=== PATIENT | female | born 1990 | race Caucasian/White ===

== ENCOUNTER → 2017-10-04 | Outpatient (REF) | payer BC ==
[2017-10-07 14:16] LABS: HPV LOW VOL RFLX Positive (Negative)
== END ==
LOC: M LAB REF 12:53
DX: R87.612 Low grade squamous intraepithelial lesion on cytologic smear of cervix (LGSIL) (principal)
CPT/HCPCS: G0123

== ENCOUNTER → 2018-02-10 | Outpatient (CLI) | payer BC | LOC: M WUC 13:10 | DX: M25.571 Pain in right ankle and joints of right foot (principal) | CPT/HCPCS: 73630 ==

== ENCOUNTER → 2018-11-13 | Outpatient (REF) | payer BC | LOC: M LAB REF 09:12 | PROVIDERS: ATTEND Specialist | DX: Z12.4 Encounter for screening for malignant neoplasm of cervix (principal) ==

== ENCOUNTER → 2019-08-06 | Outpatient (REF) | payer BC ==
[2019-08-06 14:15] LABS: HEMATOCRIT 42.7 % (36.0-47.0); HEMOGLOBIN 14.1 g/dl (12.0-15.5); MEAN CORPUSCULAR HEMOGLOBIN 29.8 pg (27.0-33.0); MEAN CORPUSCULAR VOLUME 90.3 fl (80.0-96.0); PLATELET COUNT, AUTOMATED 315 10^3/uL (150-450); RED BLOOD COUNT 4.73 10^6/uL (4.00-5.40); WHITE BLOOD COUNT 8.8 10^3/uL (4.0-10.0)
[2019-08-06 15:08] LABS: HEPATITIS B SURFACE ANTIGEN NEGATIVE (NEGATIVE); HEPATITIS C VIRUS ABY INDEX 0.1 INDEX (<0.8); HIV 1&2 SCREEN CENTAUR NEGATIVE (NEGATIVE); RUBELLA IgG QUALITATIVE IMMUNE (IMMUNE)
[2019-08-06 16:44] LABS: CHLAMYDIA DNA AMPLIFICATION NEGATIVE (NEGATIVE); GC DNA AMPLIFICATION NEGATIVE (NEGATIVE)
== END ==
LOC: M PLALAB 08:56
PROVIDERS: ATTEND Specialist
DX: Z34.80 Encounter for supervision of other normal pregnancy, unspecified trimester (principal)

== ENCOUNTER → 2019-09-20 | Outpatient (CLI) | payer BC, MEDICAID | LOC: M PLALAB 09:02 | PROVIDERS: ATTEND Advanced Practice Midwife | DX: Z34.82 Encounter for supervision of other normal pregnancy, second trimester (principal); Z36.89 Encounter for other specified antenatal screening ==

== ENCOUNTER → 2019-10-19 | Outpatient (CLI) | payer BC, MEDICAID | LOC: M WHC 13:46 | PROVIDERS: ATTEND Advanced Practice Midwife | DX: Z34.02 Encounter for supervision of normal first pregnancy, second trimester (principal); Z53.9 Procedure and treatment not carried out, unspecified reason ==

== ENCOUNTER → 2019-11-05 | Outpatient (CLI) | payer BC, MEDICAID ==
--- NOTE | 2019-11-06 09:58 | REP ---
REASON: anatomy. Multiple ultrasonographic images of the gravid uterus show a single living intrauterine gestation in variable position. Doppler interrogation of the heart shows a heart rate of 136 beats per minute. The placenta is anterior and not low lying. The subjective amniotic fluid volume is within normal limits. The cervix measures 4.5 cm in length and is closed. Evaluation of the maternal adnexal spaces show no abnormalities. BPD 4.9 cm = 20 weeks 5 days HC 18.1 cm = 20 weeks 2 days AC 16.1 cm = 21 weeks 2 days FL 3.4 cm = 20 weeks 5 days Estimated weight is 387 grams, which is at the 69th percentile for 52-oxjw-9-day gestational age. The anatomic structures seen and unremarkable are as follows: Thalami, cavum septum pellucidum, cerebellum, cisterna magna, cerebral ventricles, stomach, cord insertion, three-vessel umbilical cord, kidneys, urinary bladder, upper lip and spine. The structures suboptimally visualized are a follows: Four-chamber heart, right and left ventricular outflow tracts, and upper and lower extremities. IMPRESSION: Single living intrauterine gestation as described above with an estimated gestational age of 20 week 4 days via composite criteria and an estimated date of delivery 03/20/2020. No anomalies we detected, however, recommend a followup examination to better visualized those structures not well seen today as described above.
== END ==
LOC: M WHC 14:19
PROVIDERS: ATTEND Advanced Practice Midwife
DX: Z34.82 Encounter for supervision of other normal pregnancy, second trimester (principal); Z3A.20 20 weeks gestation of pregnancy

== ENCOUNTER → 2019-12-06 | Outpatient (REF) | payer BC, MEDICAID ==
[2020-01-03 12:13] LABS: HEMATOCRIT 32.9 % (36.0-47.0); HEMOGLOBIN 10.5 g/dl (12.0-15.5); MEAN CORPUSCULAR HEMOGLOBIN 28.3 pg (27.0-33.0); MEAN CORPUSCULAR HGB CONC 31.9 g/dl (32.0-36.5); MEAN CORPUSCULAR VOLUME 88.7 fl (80.0-96.0); PLATELET COUNT, AUTOMATED 315 10^3/uL (150-450); RED BLOOD COUNT 3.71 10^6/uL (4.00-5.40)
== END ==
LOC: M SFHCWAGY 15:28
PROVIDERS: ATTEND Obstetrics & Gynecology
DX: Z34.92 Encounter for supervision of normal pregnancy, unspecified, second trimester (principal); Z36.89 Encounter for other specified antenatal screening

== ENCOUNTER → 2019-12-06 | Outpatient (CLI) | payer BC, MEDICAID ==
--- NOTE | 2020-01-23 09:54 | REP ---
OBSTETRIC SONOGRAPHY: HISTORY: Supervision of second trimester. FINDINGS: Scanning through the gravid uterus demonstrates a single living intrauterine gestation in a breech lie. The placenta is anterior grade 0 without evidence of previa or abruption. Amniotic fluid is subjectively normal. heart rate is recorded at 140 beats per minute. Closed cervical length is measured transabdominally at 3.8 cm. The four chamber heart and outflow tract views were again less than optimally visualized due to position. BIOMETRY CHART: BPD 61 mm 25 weeks 1 day Head circumference 229 mm 25 weeks 0 days Abdominal circumference 199 mm 24 weeks 5 days Femur length 44 mm 24 weeks 5 days Humeral length 40 mm 24 weeks 5 days Estimated weight is 725 grams, 39th percentile. IMPRESSION: Single living intrauterine gestation at 25 weeks 0 days by today's composite criteria. heart and outflow tract views still less than optimally achieved. There is evidence of appropriate interval growth. This report was delayed due to a protracted network disruption at this facility. JADON
== END ==
LOC: M WHC 06:13
PROVIDERS: ATTEND Obstetrics & Gynecology
DX: Z34.92 Encounter for supervision of normal pregnancy, unspecified, second trimester (principal)

== ENCOUNTER → 2019-12-27 | Outpatient (CLI) | payer BC, MEDICAID ==
--- NOTE | 2020-01-15 17:47 | REP ---
OBSTETRIC SONOGRAPHY HISTORY: Follow-up anatomy. heart views and estimated weight. FINDINGS: Scanning through the gravid uterus demonstrates a viable single intrauterine gestation in a breech lie. The placenta is anterior grade 0 without evidence of placenta previa or abruption. Amniotic fluid is subjectively normal. BETH is measured at 17.3 cm, which is in the normal range. Closed cervical length is measured transabdominally at 4.4 cm. heart rate is recorded at 150 beats per minute. Right and left ventricular outflow tract views could not be achieved today again due to position. BIOMETRY CHART: BPD 70 mm 28 weeks 4 days Head Circumference 261 mm 28 weeks 4 days Abdominal Circumference 233 mm 27 weeks 5 days Femur Length 51 mm 27 weeks 5 days Humeral Length 46 mm 27 weeks 5 days Estimated Weight 1125 g 39th percentile IMPRESSION: Viable single intrauterine gestation at 28 weeks 1 day by todays composite criteria. Breech lie. Position precludes adequate visualization of heart structures. MTDD
== END ==
LOC: M WHC 14:35
PROVIDERS: ATTEND Obstetrics & Gynecology
DX: Z34.82 Encounter for supervision of other normal pregnancy, second trimester (principal)

== ENCOUNTER → 2020-01-23 | Outpatient (CLI) | payer BC, MEDICAID ==
--- NOTE | 2020-02-14 12:57 | REP ---
OBSTETRIC SONOGRAPHY: (REPEAT DICTATION) HISTORY: Follow-up anatomy. Incomplete cardiac views. FINDINGS: Scanning demonstrates a viable single intrauterine gestation in a cephalic lie. heart rate is recorded at 127 beats per minute. Amniotic fluid is subjectively normal. Amniotic fluid index (BETH) is normal at 13.0 cm. An anterior grade 2 placenta is seen without evidence of previa. Three vessel umbilical cord is noted. Closed cervical length is measures at 3.9 cm viewed transabdominally. heart views were obtained today including left ventricular outflow tract, four chamber heart, and right ventricular outflow tract views. BIOMETRY CHART: BPD 8.1 cm 32 weeks 5 days Head circumference 29.6 cm 32 weeks 5 days Abdominal circumference 28.3 cm 32 weeks 2 days Femur length 6.4 cm 33 weeks 0 days Humeral length 5.7 cm 32 weeks 6 days AC/HC ratio 1.05 Normal Cephalic index 0.77 Normal Estimated weight 2004 grams, 4 pounds 6 ounces, 71st percentile for 31 weeks 4 days. IMPRESSION: Single living intrauterine gestation at 32 weeks 5 days by todays composite sonographic criteria. Estimated date of delivery (JANIA) by [facility] 03/14/2020. cardiac structures are observed today and felt to be normal sonographically. MTDD
== END ==
LOC: M WHC 14:57
PROVIDERS: ATTEND Obstetrics & Gynecology
DX: Z34.83 Encounter for supervision of other normal pregnancy, third trimester (principal); Z3A.32 32 weeks gestation of pregnancy

== ENCOUNTER → 2020-02-11 | Outpatient (CLI) | payer BC, MEDICAID ==
--- NOTE | 2020-02-14 10:22 | REP ---
LIMITED OBSTETRIC SONOGRAPHY HISTORY: Supervision of . Follow-up. COMPARISON STUDY: 01/23/2020. FINDINGS: Scanning through the gravid uterus demonstrates a viable single intrauterine gestation in a cephalic lie. The placenta is anterior grade 2 without evidence of previa. Amniotic fluid is subjectively normal. Amniotic fluid index (BETH) is normal at 13.6 cm. heart rate is recorded at 134 beats per minute. Three-vessel cord is seen. Closed cervical length is measured at 3.8 cm viewed transabdominally. BIOMETRY CHART: BPD 8.5 cm 34 weeks 3 days Head circumference 31.1 cm 34 weeks 6 days Abdominal circumference 30.2 cm 34 weeks 1 day Femur length 6.9 cm 35 weeks 2 days Humeral length 6.1 cm 35 weeks 4 days AC/HC ratio 1.03 Normal Cephalic index 0.77 Normal Estimated weight 2461 grams, 5 pounds 6 ounces, 52nd percentile for 34 weeks 2 days. IMPRESSION: Viable single intrauterine gestation at 34 weeks 6 days, estimated date of delivery (JANIA) by [facility] sonography 03/18/2020. Expected gestational age estimate 34 weeks 2 days. Estimated date of delivery (JANIA) 02/20/2020. Appropriate interval growth. MTDD
== END ==
LOC: M WHC 06:43
PROVIDERS: ATTEND Obstetrics & Gynecology
DX: Z34.03 Encounter for supervision of normal first pregnancy, third trimester (principal); Z3A.34 34 weeks gestation of pregnancy

== ENCOUNTER → 2020-02-19 | Outpatient (REF) | payer BC, MEDICAID | LOC: M SFHCWAGY 13:39 | PROVIDERS: ATTEND Obstetrics & Gynecology | DX: Z3A.35 35 weeks gestation of pregnancy (principal) ==

== ENCOUNTER 2020-03-21 11:10 | Inpatient (IN) | payer BC, MEDICAID ==
[~2020-03-21] VITALS: Ht 162.6 cm; Wt 115.3 kg
[2020-03-21] VITALS (14 sets, daily range): BP systolic 125–147; BP diastolic 70–98
[2020-03-21] MEDS ORDERED: LACTATED RINGER'S 1000 ML IV STA (11:21)
[2020-03-21 12:36] LABS: HEMATOCRIT 31.3 % (36.0-47.0); HEMOGLOBIN 9.3 g/dl (12.0-15.5); MEAN CORPUSCULAR HEMOGLOBIN 21.6 pg (27.0-33.0); MEAN CORPUSCULAR HGB CONC 29.7 g/dl (32.0-36.5); MEAN CORPUSCULAR VOLUME 72.8 fl (80.0-96.0); PLATELET COUNT, AUTOMATED 354 10^3/uL (150-450); WHITE BLOOD COUNT 10.8 10^3/uL (4.0-10.0)
[2020-03-21 12:48] LABS: TOTAL PROTEIN,RANDOM URINE 8.1 MG/DL (0.0-12.0)
[2020-03-21 12:49] LABS: ALT/SGPT 15 U/L (12-78); BILIRUBIN,TOTAL 0.2 MG/DL (0.2-1.0); CREATININE FOR GFR 0.66 MG/DL (0.55-1.30); GLOMERULAR FILTRATION RATE > 60.0 (>60); LDH LACTATE DEHYDROGENASE 214 U/L (84-246); URIC ACID 5.5 MG/DL (2.6-6.0)
--- NOTE | 2020-03-21 13:54 | HPEPDOC ---
Obstetrical History & Physical General Date of Admission Mar 21, 2020 at 11:10 History of Present Illness Chief Complaint: Induction of labor (GHTN and edema) Information Provided By: Patient Age: 29 : 1 Term: 0 Pre-term: 0 Abortions: 0 Livin Care Care: Good Care Dating Final EDC by: LMP EGA at Admission: 39 (+6) Antepartum Course Admission Weight (lbs.): 255 Past Medical History Past Obstetrical History : Past Obstetrical History: [employer] History: Abnormal Pap, Human papillomavirus(HPV) Past Medical History Medical History asthma Surgical History: Denies/None Family History Significant Family History: Diabetes Social History Marital Status: Single Family situation: Spouse/partner home Psychosocial History: No pertinent psych hx * Smoker: non-smoker Alcohol: Denies Drugs: denies Abuse Violence Screening Have you been hit/kicked/slapp: No Have you been sexually assault: No Imunizations Tdap status: current Physical Examination Physical Examination GENERAL: Alert and oriented times three. BREAST: . ABDOMEN: Gravid and non-tender to touch. FETUS: Is vertex (VTX) by sterile vaginal examination (SVE), fetus is vertex (VTX) by Tres. EFW 8-8.5# HEART RATE: Regular rate and rhythm. LUNGS: Clear to auscultation (CTA). EXTREMITIES: No clonus. Deep tendon reflexes (DTRs) + 2-3, + 1 pitting lower extremity edema. Vital Signs/I&O Vital Signs Date Time Temp Pulse Resp B/P (MAP) Pulse Ox O2 Delivery O2 Flow Rate FiO2 03/21/20 13:04 91 130/90 (103) 03/21/20 11:38 98.3 16 Laboratory Data 24H LABS Laboratory Tests 2 03/21/20 11:20: Serology Scanned Report Hepatitis B Testing 03/21/20 12:06: Nucleated Red Blood Cells % (auto) 0.0, Urine Random Creatinine 29.0, Urine Random Total Protein 8.1, Glomerular Filtration Rate > 60.0, Uric Acid 5.5, Total Bilirubin 0.2, Aspartate Amino Transf (AST/SGOT) 15, Alanine Aminotransferase (ALT/SGPT) 15, Lactate Dehydrogenase 214, Syphilis Serology NONREACTIVE CBC/BMP Laboratory Tests 03/21/20 12:06 Pertinent Laboratoy Data Blood Type: O+ RBC Antibody Screen: Negative HIV: Negative Hepatitis B: Negative Hepatitis C: Negative Rapid Plasma Reagin: Nonreactive Rubella: Immune Chlamydia/Gonorrhea: Negative Group B Streptococcus: Negative Quad Screen Test: Unknown (low risk panorama) Glucose Tolerance Test: 106 Diag/Inter Therapy NIPT low risk Anatomy Ultrasound Ultrasound Date: Nov 05, 2019 Placenta Location: Anterior Normal Anatomy: Yes Placenta Previa: No Estimated Weight (grams): 387 (69%) Other Ultrasounds 08/06/2019+fh cw dates 12/06/2019 f/u. EFW 725gm 39%, continued inability to visualize cardiac structures 12/27/2019 EFW 1125gm 39%, continued inability to visualize cardiac structures 01/23/2020 EFW 2004gm 71%, adequate visualization of cardiac structures 02/19/2020 vertex Steroid Therapy Steroid Therapy: No Vaginal Examination Dilation: 1cm Effacement: other (25%) Station: -3 Cervical Consistency: Firm Cervical Position: Posterior Presentation: Cephalic presentation Assessment Heart Rate (FHR): 125 Variability: Moderate Accelerations: Positive Decelerations: None Tocometer Contractions: No Assessment/Plan Assessment Hina is a 29-year-old (G)1 para (P)0-0-0-0 at 39+6 weeks by 7-week ultrasound. Presents to Labor and Delivery (L&D) induction of labor. Office appointment today noted BP 148/92 with marked lower extremity edema. Plan Admit and orient. Event Organizer and consent per consult Dr Jaramillo Diet: regular. Group B Streptococcus (GBS) negative. Labs and intravenous (IV) per unit protocol. Counseled on misoprostol, Pitocin and induction of labor (IOL). Lactated Ringers (LR): Bolus 500 mL, then saline lock. Plans to labor ad pierre Anticipate normal spontaneous delivery (). C-S as appropriate. Lenore Crespo CNM Mar 21, 2020 13:54
[2020-03-21] MEDS ORDERED: TUMS750C5 PO (13:58)
[2020-03-21] MEDS ORDERED: PRENTAB9 PO (13:58)
[2020-03-21] MEDS: miSOPROStol 50 MCG 1/2 TAB (S0191) PO SCH ×3 (14:17→22:15)
[2020-03-22] VITALS (56 sets, daily range): BP systolic 106–197; BP diastolic 50–102
[2020-03-22] MEDS ORDERED: PROMETHAZINE INJ 25 MG/ML VIAL (J2550) IV ONE ×2 (02:30→08:00)
[2020-03-22] MEDS ORDERED: BUTORPHANOL 2 MG/ML INJ (J0595) IV ONE ×2 (02:30→08:00)
[2020-03-22] MEDS: miSOPROStol 50 MCG 1/2 TAB (S0191) PO SCH (02:32)
--- NOTE | 2020-03-22 07:36 | IPNPDOC ---
Text Note Date of Service The patient was seen on 03/22/20. NOTE Progress Has received misoprosol x 4. UC 3-4 minutes apart x 45-60 seconds FH 120, difficult to trace ddue to habitus. Primarily Cat I SVE 2/80/-3, posterior. VSS. Cooks catheter placed, inflated with 60/40cc NS. Stadol and phenergan ordered Will update Dr Torres. VSVasquez, I+O VSVasquez, I+O Laboratory Tests 03/21/20 12:06 Vital Signs Date Time Temp Pulse Resp B/P (MAP) Pulse Ox O2 Delivery O2 Flow Rate FiO2 03/22/20 02:32 18 03/22/20 00:39 98.1 83 116/57 (76) I&O- Last 24 Hours up to 6 AM 03/22/20 06:00 Intake Total 1400 ml Balance 1400 ml Lenore Crespo CNM Mar 22, 2020 07:36
[2020-03-22] MEDS ORDERED: FENTANYL 2MCG/ML ROPIVACAINE 0.2% IN 0.9% NACL 100ML IVBAG As Ordered ONE (11:31)
[2020-03-22 12:39] LABS: HEMATOCRIT 30.4 % (36.0-47.0); MEAN CORPUSCULAR HEMOGLOBIN 21.3 pg (27.0-33.0); MEAN CORPUSCULAR HGB CONC 29.6 g/dl (32.0-36.5); PLATELET COUNT, AUTOMATED 328 10^3/uL (150-450); RED BLOOD COUNT 4.22 10^6/uL (4.00-5.40); WHITE BLOOD COUNT 16.8 10^3/uL (4.0-10.0)
--- NOTE | 2020-03-22 14:18 | IPNPDOC ---
Obstetrical Progress Note Date of Service Mar 22, 2020 Subjective comfortable with epidural Objective Vital Signs Date Time Temp Pulse Resp B/P (MAP) Pulse Ox O2 Delivery O2 Flow Rate FiO2 03/22/20 13:18 97 139/102 (114) 03/22/20 08:40 14 03/22/20 00:39 98.1 Assessment Heart Rate (FHR): 120 Variability: Moderate Decelerations: None Heart Rate Tracing: Category I Tocometer Contractions: Yes Frequency: regular, every 1-5 min. Duration: greater than 60 seconds Strength: palpated as strong Sterile Vaginal Examination Dilation: 5 cm Effacement (%): 90% Station: -2 Cervical Consistency: Soft Cervical Position: Posterior Postion/Presentation: Cephalic presentation Assessment and Plan Age: 31 : 1 Term: 0 Weeks & Days 31 yo G1 at 39 6/7 weeks, induction for hypertension AROM for moderate meconium epidural in place and functioning well expect progress within the next couple of hours after AROM Status: Reassuring MILY GLASGOW MD Mar 22, 2020 14:18
[2020-03-22] MEDS ORDERED: FENTANYL/ROPIVACAINE/NACL BAG 100 ML EPIDURAL SCH (15:15)
[2020-03-22] MEDS ORDERED: LACTATED RINGER'S 1000 ML IV PRN (15:15)
[2020-03-22] MEDS ORDERED: diphenhydrAMINE 50MG/ML VIAL (J1200) IV PRN ×2 (15:15→16:25)
[2020-03-22] MEDS ORDERED: REFRIGERATOR IV KEYS XX PRN (15:15)
[2020-03-22] MEDS ORDERED: OXYTOCIN DRIP 30 UNITS in IV 1 EA IV SCH ×2 (15:15→17:15)
[2020-03-22] MEDS ORDERED: EPIDURAL COMMENT XX SCH (15:15)
[2020-03-22] MEDS ORDERED: EPIDURAL/PCA KEYS XX PRN (15:15)
[2020-03-22] MEDS ORDERED: ONDANSETRON 4MG/2ML VIAL IV PRN ×4 (15:15→17:15)
[2020-03-22] MEDS ORDERED: NALOXONE INJ 0.4MG/1ML VIAL (J2310 PER 1MG) IV PRN ×3 (15:15→16:25)
[2020-03-22] MEDS ORDERED: ePHEDrine SULFATE 25 MG/5 ML(5MG/ML) SYRINGE IV PRN (15:15)
[2020-03-22] MEDS ORDERED: KETOROLAC 60MG 2ML VIAL As Ordered ONE (15:54)
[2020-03-22] MEDS ORDERED: ONDANSETRON 4MG/2ML VIAL As Ordered ONE (15:54)
[2020-03-22] MEDS ORDERED: dexameTHASONE 4 MG/ML 1ML VIAL (J1100 PER 1MG) As Ordered ONE (15:54)
[2020-03-22] MEDS ORDERED: OXYTOCIN INJ 10 UNITS/ML VIAL (J2590) As Ordered ONE (15:54)
[2020-03-22] MEDS ORDERED: BICITRA 30ML SOLN UDC PO ONE (16:00)
[2020-03-22] MEDS ORDERED: ceFAZolin SOD 2 GM in IV 1 EA IV ONE (16:00)
[2020-03-22] MEDS ORDERED: AZITHROMYCIN INJ 500 MG, VIAL MATE ADAPTER 1 EACH in D5W 250 ML IV ONE (16:00)
[2020-03-22] MEDS ORDERED: SODIUM BICARBONATE 8.4% INJ 50MEQ 50 ML VIAL As Ordered ONE (16:06)
[2020-03-22] MEDS ORDERED: LIDOCAINE 2% W/EPINEPHRINE 20ML VIAL **PRES FREE As Ordered ONE (16:06)
[2020-03-22] MEDS ORDERED: MORPHINE PRES-FREE INJ 10 MG/10 ML VIAL (J2274) As Ordered ONE (16:22)
[2020-03-22] MEDS ORDERED: NALBUPHINE HCL 10 MG/ML AMP (J2300) IV PRN (16:25)
[2020-03-22] MEDS ORDERED: METOCLOPRAMIDE INJ 10MG/2ML VIAL (J2765 PER 1) IV PRN (16:25)
[2020-03-22 16:34] LABS: CORD GAS ABE A -5.4; CORD GAS ABE V -4.7; CORD GAS HCO3 A 23.2 MEQ/L; CORD GAS HCO3 V 22.5 MEQ/L; CORD GAS O2 SAT A < 15.0 %; CORD GAS O2 SAT V 28.1 %; CORD GAS PCO2 A 57.1 mmHg; CORD GAS PCO2 V 49.5 mmHg; CORD GAS PH A 7.226 UNITS; CORD GAS PH V 7.276 UNITS; CORD GAS PO2 A < 10.0 mmHg; CORD GAS PO2 V 16.2 mmHg; CORD GAS SBC V 18.9 MEQ/L; CORD GAS TCO2 A 24.9 MEQ/L
--- NOTE | 2020-03-22 16:59 | ROOPDOC ---
[facility] Report Of Operation Report of Operation DATE OF PROCEDURE: 03/22/20 Report of operation Preoperative diagnosis: 39 6/7 weeks, gestational hypertension, arrest of dilation Postoperative diagnosis: same Procedure: Primary low transverse section. Surgeon: Mily Glasgow M.D. EBL: 500 ml. Urine output: 100 mL's. Findings: 8 lbs. 7 oz. female infant, Apgars 8 and 9 g normal uterus, fallopian tubes, ovaries. Moderate meconium present. Nuchal cord x 1. Operative summary: Patient taken to the operating room where epidural anesthesia was adequate. She wass prepped draped sterile fashion in the supine position. A Goldstein catheter was in place. A Pfannenstiel skin incision was made with scalpel. Fascia was incised and extended bilaterally. The peritoneal cavity was entered. A Mobius retractor was placed. A bladder flap was created. A curvilinear incision was made in lower uterine segment until meconium stained fluid was noted. The incision was extended manually. The infant was delivered from the vertex position without difficulty. Cord was double clamped and cut. The infant was handed waiting nurses. The placenta was expressed. Uterus was closed with O-Vicryl in a running locked fashion. A second imbricating layer of Vicryl was placed. Peritoneum was closed with 2-0 Vicryl a running fashion. Fascia was closed with 0 Vicryl in running fashion. Skin was closed 4-0 Monocryl subcuticular sutures. Sponge, instrument and needle counts were correct. MILY GLASGOW MD Mar 22, 2020 16:59
[2020-03-22] MEDS ORDERED: MEASLES,MUMPS,RUBELLA VACCINE INJ (MMR-II) (90707) SC SCH (17:00)
[2020-03-22] MEDS ORDERED: RHOGAM 300 MCG (1500 IU) INJ (J2790) IM SCH (17:00)
[2020-03-22] MEDS ORDERED: DOCUSATE SODIUM 100 MG CAP PO PRN (17:00)
[2020-03-22] MEDS ORDERED: PERCOCET 5MG/325MG TAB PO PRN (17:00)
[2020-03-22] MEDS ORDERED: fentaNYL 100 MCG/2 ML INJECTION (J3010) IV PRN (17:15)
[2020-03-22] MEDS ORDERED: MORPHINE 2 MG/ML 1ML VIAL (J2270) IV PRN (17:15)
[2020-03-22] MEDS ORDERED: LR 1,000 ML IV SCH ×2 (17:15)
[2020-03-22] MEDS ORDERED: oxyCODONE 5MG TAB PO PRN (17:15)
[2020-03-22] MEDS: LABETALOL 200 MG TAB PO SCH (21:47)
[2020-03-22] MEDS: KETOROLAC 30 MG/ML 1ML VIAL IV SCH (22:46)
[2020-03-23 02:00] VITALS: BP 134/79
[2020-03-23] MEDS: KETOROLAC 30 MG/ML 1ML VIAL IV SCH ×2 (05:10→11:29)
[2020-03-23 06:00] VITALS: BP 117/73
[2020-03-23 07:59] LABS: HEMATOCRIT 27.4 % (36.0-47.0); HEMOGLOBIN 8.2 g/dl (12.0-15.5); MEAN CORPUSCULAR HGB CONC 29.9 g/dl (32.0-36.5); MEAN CORPUSCULAR VOLUME 73.5 fl (80.0-96.0); PLATELET COUNT, AUTOMATED 318 10^3/uL (150-450); RED BLOOD COUNT 3.73 10^6/uL (4.00-5.40); WHITE BLOOD COUNT 20.2 10^3/uL (4.0-10.0)
[2020-03-23] MEDS: PRENATAL VITAMINS CHEWABLE TABLET PO SCH (08:13)
[2020-03-23] MEDS: LABETALOL 200 MG TAB PO SCH ×2 (08:14→20:32)
[2020-03-23 08:16] VITALS: BP 138/87
[2020-03-23] MEDS: PERCOCET 5MG/325MG TAB PO PRN ×2 (08:57→17:37)
[2020-03-23] MEDS: FUROSEMIDE 20 MG TAB PO SCH (09:46)
[2020-03-23] MEDS ORDERED: OXYC1TAB23 PO (10:13)
[2020-03-23 13:33] VITALS: BP 128/79
[2020-03-23 17:19] VITALS: BP 132/84
[2020-03-23] MEDS: IBUPROFEN 800 MG TAB PO SCH (19:14)
[2020-03-23 22:16] VITALS: BP 122/74
[2020-03-24 02:15] VITALS: BP 138/86
[2020-03-24] MEDS: IBUPROFEN 800 MG TAB PO SCH ×2 (02:22→11:42)
[2020-03-24] MEDS: PERCOCET 5MG/325MG TAB PO PRN (02:23)
[2020-03-24] MEDS ORDERED: LABE20TAB PO (05:09)
[2020-03-24] MEDS ORDERED: IBUP80TA PO (05:09)
--- NOTE | 2020-03-24 05:16 | DS.PDOC ---
Discharge Summary General Date of Admission Mar 21, 2020 at 11:10 Date of Discharge March 24, 2020 Attending Physician: MILY GLASGOW MD Discharge Summary PROCEDURES PERFORMED DURING STAY: [None]. ADMITTING DIAGNOSES: 1. 39 6/7 weeks, gestational hypertension. DISCHARGE DIAGNOSES: 1. same. COMPLICATIONS/CHIEF COMPLAINT: Induction. HISTORY OF PRESENT ILLNESS: 29 yo G1 at 39 6/7 weeks gestation presents for labor induction due to hypertension as well as worsening edema.. HOSPITAL COURSE: Pt was admitted on 03/21/2020. She had Misoprostol induction initially. She had an intracervical catheter placed. She had AROM performed when the catheter fell out. She was eventually diagnosed with arrest of dilation. ON 03/22/2020 she had a section for an 8 lb 7 oz infant. There were no complications. She received Labetalol post for elevated blood pressure. She received a dose of Lasix for generalized edema. She was stable for discharge day#2 after surgery. DISCHARGE MEDICATIONS: Please see below. ALLERGIES: Please see below. PHYSICAL EXAMINATION ON DISCHARGE: VITAL SIGNS: Please see below. GENERAL: WNL HEENT: NCAT CARDIOVASCULAR EXAMINATION: RRR RESPIRATORY EXAMINATION: CTA ABDOMINAL EXAMINATION: NT, dressing C/D/I EXTREMITIES: 2+ edema LE's LABORATORY DATA: Please see below. PROGNOSIS: good ACTIVITY: As tolerated. DIET: reg DISCHARGE PLAN: home DISCHARGE INSTRUCTIONS: 1. d/c home 2. instructions reviewed. DISCHARGE CONDITION: Stable. TIME SPENT ON DISCHARGE: Greater than 10 minutes. Vital Signs/I&Os Vital Signs Date Time Temp Pulse Resp B/P (MAP) Pulse Ox O2 Delivery O2 Flow Rate FiO2 03/24/20 02:23 18 03/24/20 02:15 97.4 102 138/86 (103) 03/23/20 17:19 98 Room Air I&O- Last 24 Hours up to 6 AM 03/24/20 06:00 Intake Total 1200 ml Output Total 775 ml Balance 425 ml Laboratory Data Labs 24H Laboratory Tests 2 03/23/20 07:28: Nucleated Red Blood Cells % (auto) 0.0 CBC/BMP Laboratory Tests 03/23/20 07:28 Discharge Medications Scheduled Ibuprofen (Ibuprofen) 800 Mg Tablet, 800 MG PO Q8H Labetalol HCl (Labetalol HCl) 200 Mg Tablet, 200 MG PO BID No.137/Iron/Folic Acd ( Vitamin Tablet) 1 Each Tablet, 1 TAB PO DAILY, (Reported) Scheduled PRN Calcium Carbonate (Tums) 300 Mg Tab.chew, 750 MG PO Q4HP PRN for INDIGESTION, (Reported) Oxycodone HCl/Acetaminophen (Oxycodone-Acetaminophen 5-325) 1 Each Tablet, 1 TAB PO TIDP PRN for pain Allergies Coded Allergies: No Known Drug Allergies (Verified Allergy, Unknown, 03/21/20) MILY GLASGOW MD Mar 24, 2020 05:16
[2020-03-24 06:11] VITALS: BP 131/84
[2020-03-24] MEDS: FUROSEMIDE 20 MG TAB PO SCH (09:35)
[2020-03-24] MEDS: PRENATAL VITAMINS CHEWABLE TABLET PO SCH (09:35)
[2020-03-24 09:36] VITALS: BP 138/87
[2020-03-24] MEDS: LABETALOL 200 MG TAB PO SCH (09:36)
[2020-03-24 10:00] VITALS: BP 138/87
== END 2020-03-24 13:07 | disposition home or self-care (01) | DRG 540 ==
LOC: M LDI 11:10 → M OBS 03-22 18:30
PROVIDERS: ADMIT Advanced Practice Midwife; ATTEND Specialist
PROC: 3E0P7GC Introduction of Other Therapeutic Substance into Female Reproductive, Via Natural or Artificial Opening (ICD-10-PCS; 2020-03-21)
PROC: 10907ZC Drainage of Amniotic Fluid, Therapeutic from Products of Conception, Via Natural or Artificial Opening (ICD-10-PCS; 2020-03-22)
PROC: 10D00Z1 Extraction of Products of Conception, Low, Open Approach (ICD-10-PCS; principal; 2020-03-22 15:59)
DX: O13.4 Gestational [pregnancy-induced] hypertension without significant proteinuria, complicating childbirth (principal); O77.0 Labor and delivery complicated by meconium in amniotic fluid; Z3A.39 39 weeks gestation of pregnancy; O62.0 Primary inadequate contractions; Z37.0 Single live birth

== ENCOUNTER → 2020-03-26 | Outpatient (REF) | payer BC, MEDICAID ==
[~2020-03-26] MED LIST: IBUP80TA PO; LABE20TAB PO; OXYC1TAB23 PO; PRENTAB9 PO; TUMS750C5 PO
[2020-03-26 13:57] LABS: MEAN CORPUSCULAR HGB CONC 29.6 g/dl (32.0-36.5); MEAN CORPUSCULAR VOLUME 74.4 fl (80.0-96.0); PLATELET COUNT, AUTOMATED 359 10^3/uL (150-450); RED BLOOD COUNT 3.63 10^6/uL (4.00-5.40); WHITE BLOOD COUNT 9.6 10^3/uL (4.0-10.0)
[2020-03-26 14:27] LABS: CREATININE,RANDOM URINE 96.6 MG/DL; TOTAL PROTEIN,RANDOM URINE 12.8 MG/DL (0.0-12.0)
[2020-03-26 14:53] LABS: ALBUMIN 2.3 GM/DL (3.2-5.2); ALT/SGPT 22 U/L (12-78); BILIRUBIN,TOTAL 0.3 MG/DL (0.2-1.0); BLOOD UREA NITROGEN 13 MG/DL (7-18); CALCIUM LEVEL 8.9 MG/DL (8.5-10.1); CARBON DIOXIDE LEVEL 28 MEQ/L (21-32); CHLORIDE LEVEL 106 MEQ/L (98-107); GLOMERULAR FILTRATION RATE > 60.0 (>60); GLUCOSE, FASTING 74 MG/DL (70-100); LDH LACTATE DEHYDROGENASE 239 U/L (84-246); POTASSIUM SERUM 4.5 MEQ/L (3.5-5.1); SODIUM LEVEL 140 MEQ/L (136-145); TOTAL PROTEIN 5.8 GM/DL (6.4-8.2); URIC ACID 6.4 MG/DL (2.6-6.0)
== END ==
LOC: M PLALAB 11:03
PROVIDERS: ATTEND Obstetrics & Gynecology
DX: O16.5 Unspecified maternal hypertension, complicating the puerperium (principal); Z3A.00 Weeks of gestation of pregnancy not specified

== ENCOUNTER → 2020-04-02 | Outpatient (REF) | payer BC, MEDICAID ==
[2020-04-02 13:43] LABS: HEMATOCRIT 35.9 % (36.0-47.0); HEMOGLOBIN 10.4 g/dl (12.0-15.5); MEAN CORPUSCULAR HEMOGLOBIN 21.5 pg (27.0-33.0); MEAN CORPUSCULAR VOLUME 74.3 fl (80.0-96.0); PLATELET COUNT, AUTOMATED 473 10^3/uL (150-450); RED BLOOD COUNT 4.83 10^6/uL (4.00-5.40); WHITE BLOOD COUNT 9.9 10^3/uL (4.0-10.0)
[2020-04-02 14:17] LABS: ALBUMIN 3.1 GM/DL (3.2-5.2); ALT/SGPT 27 U/L (12-78); BILIRUBIN,TOTAL 0.4 MG/DL (0.2-1.0); BLOOD UREA NITROGEN 15 MG/DL (7-18); CARBON DIOXIDE LEVEL 26 MEQ/L (21-32); CHLORIDE LEVEL 107 MEQ/L (98-107); CREATININE FOR GFR 0.89 MG/DL (0.55-1.30); GLOMERULAR FILTRATION RATE > 60.0 (>60); GLUCOSE, FASTING 85 MG/DL (70-100); LDH LACTATE DEHYDROGENASE 286 U/L (84-246); SODIUM LEVEL 138 MEQ/L (136-145); TOTAL PROTEIN 6.9 GM/DL (6.4-8.2); URIC ACID 6.4 MG/DL (2.6-6.0)
== END ==
LOC: M PLALAB 10:00
PROVIDERS: ATTEND Obstetrics & Gynecology
DX: Z39.2 Encounter for routine postpartum follow-up (principal)

== ENCOUNTER → 2021-10-14 | Outpatient (REF) | payer BC | LOC: M PLALAB 10:15 | PROVIDERS: ATTEND Obstetrics & Gynecology | DX: Z12.4 Encounter for screening for malignant neoplasm of cervix (principal) ==

== ENCOUNTER → 2022-05-19 | Outpatient (CLI) | payer BC | LOC: M WHC 10:38 | PROVIDERS: ATTEND Nurse Practitioner Family | DX: N63.23 Unspecified lump in the left breast, lower outer quadrant (principal) | CPT/HCPCS: 76642; 77066; G0279 ==

== ENCOUNTER → 2022-06-08 | Outpatient (CLI) | payer BC ==
[~2022-06-08] MED LIST changes: +PROHANCE 279.3MG/ML 15ML VIAL ONE; +PROHANCE 279.3MG/ML 5ML VIAL ONE
== END ==
LOC: M PLAIMG 08:20
PROVIDERS: ATTEND Obstetrics & Gynecology
DX: N64.52 Nipple discharge (principal)
CPT/HCPCS: A9576; C8908

== ENCOUNTER → 2022-06-30 | Outpatient (CLI) | payer BC ==
[~2022-06-30] MED LIST changes: -PROHANCE 279.3MG/ML 15ML VIAL ONE; -PROHANCE 279.3MG/ML 5ML VIAL ONE
== END ==
LOC: M WHC 09:01
PROVIDERS: ATTEND Obstetrics & Gynecology
DX: N63.25 Unspecified lump in the left breast, overlapping quadrants (principal)

== ENCOUNTER → 2023-01-13 | Outpatient (CLI) | payer BC ==
[~2023-01-13] MED LIST changes: +PROHANCE 279.3MG/ML 15ML VIAL As Ordered ONE; +PROHANCE 279.3MG/ML 5ML VIAL As Ordered ONE
== END ==
LOC: M RAD 12:54
PROVIDERS: ATTEND Obstetrics & Gynecology
DX: N64.52 Nipple discharge (principal)
CPT/HCPCS: A9576; C8908

== ENCOUNTER → 2023-10-04 | Outpatient (REF) | payer BC ==
[~2023-10-04] MED LIST changes: -PROHANCE 279.3MG/ML 15ML VIAL As Ordered ONE; -PROHANCE 279.3MG/ML 5ML VIAL As Ordered ONE
[2023-10-06 15:48] LABS: HPV APTIMA Not Detected (Not Detected)
== END ==
LOC: M SFHCWAGY 15:09
PROVIDERS: ATTEND Obstetrics & Gynecology
DX: Z12.4 Encounter for screening for malignant neoplasm of cervix (principal)
CPT/HCPCS: 87624; G0123